=== PATIENT | male | born 1955 | race Caucasian/White ===

== ENCOUNTER 2017-08-13 14:32 | Emergency (ER) | payer BC ==
[2017-08-13] MEDS ORDERED: NS 0.9% 1000 ML* 1,000 ML IV ONE (14:47)
[2017-08-13] MEDS ORDERED: Ketorolac INJ* 60 MG/2 ML VIAL ONE (15:00)
[2017-08-13] MEDS ORDERED: Ketorolac INJ* 60 MG/2 ML VIAL IM ONE (15:01)
[2017-08-13] MEDS: Ketorolac INJ* 30 MG/ML 1 ML VIAL IV ONE ×2 (15:01→16:02)
[2017-08-13 15:18] LABS: Hematocrit 39 % (42-52); Hemoglobin 13.6 g/dl (14.0-18.0); Mean Corpuscular HGB Conc 35 g/dl (31-36); Mean Corpuscular Hemoglobin 31 pg (27-31); Mean Corpuscular Volume 88 fL (80-94); Mean Platelet Volume 11 um3 (7.4-10.4); Platelet Count 164 10^3/ul (150-450); Red Blood Count 4.47 10^6/ul (4.0-5.4); Red Cell Distribution Width 14 % (10.5-15); White Blood Count 9.7 10^3/ul (3.5-10.8)
--- NOTE | 2017-08-13 15:27 | RAD ---
INDICATION: LEFT side flank pain. Hematuria. History of renal calculi. COMPARISON: No relevant prior exams available on the [facility] [place] [place] PACS for comparison. TECHNIQUE: Multidetector CT images were obtained from the lung bases to the ischial tuberosities. Evaluation of the viscera is limited without IV contrast. Multiplanar reformation. REPORT: Unremarkable visualized inferior thorax. Normal size liver is remarkable for a 0.9 cm water density cyst of the dome of the LEFT medial hepatic segment. Partially decompressed gallbladder without gross CT abnormality. Negative for biliary dilatation. Unremarkable unenhanced liver and spleen. The stomach is partially distended with food stuff. No CT abnormality of the upper GI, small bowel, infra cecal appendix, or colon. Negative for ascites or free air. Small fat-containing direct appearing RIGHT and indirect appearing LEFT inguinal hernias without inflammatory change. Normal adrenal glands. Negative for RIGHT urolithiasis or hydronephrosis. 1.2 cm exophytic lesion isodense with renal cortex of the superior pole of the RIGHT kidney. Moderate LEFT hydronephrosis with associated perinephric and periureteral stranding is traced to a 0.4 cm maximum dimension ureterovesicular junction stone. 2 mm calyceal stone upper pole LEFT kidney. The urinary bladder is partially decompressed. Symmetric seminal vesicles. Negative for lymphadenopathy. Normal diameter abdominal aorta and iliac arteries with mild calcific plaque. Physiologic distention of the IVC. Negative for suspicious osseous lesions. Small bone islands noted at the proximal femurs. IMPRESSION: 1. Moderate LEFT hydronephrosis with associated perinephric and periureteral stranding is traced to a 0.4 cm maximum dimension ureterovesicular junction stone. 2. In absence of prior exams to document stability with none available on the [facility] [place] [place] PACS nonemergent follow-up ultrasound of the RIGHT kidney suggested to differentiate between a small hyperdense cyst and solid lesion at the upper pole cortex.
[2017-08-13 15:34] LABS: EGFR Non-African American 39.8 (>60)
[2017-08-13 15:47] LABS: ABS Basophils 0.1 10^3/ul (0-0.2); ABS Eosinophils 0.1 10^3/ul (0-0.6); ABS Lymphocytes 1.3 10^3/ul (1.0-4.8); ABS Monocytes 0.6 10^3/ul (0-0.8); ABS Neutrophils 7.7 10^3/ul (1.5-7.7); ABS Nucleated RBC 0 10^3/ul; Eosinophil % 0.9 % (0-6); Lymphocyte % 13.5 % (25-47); Nucleated Red Blood Cells % 0.1
[2017-08-13 16:07] LABS: Urine Appearance Cloudy; Urine Blood 2+ (Negative); Urine Color Yellow; Urine Ketones Negative (Negative); Urine Protein Negative (Negative); Urine Specific Gravity 1.015 (1.010-1.030); Urine Urobilinogen Negative (Negative)
[2017-08-13 17:20] VITALS: BP 139/73
--- NOTE | 2017-08-13 21:31 | ED ---
Milly Cruz Gabriel, scribed for Vazquez Ozuna MD on 08/13/17 at 1701 . Back Pain - HPI Summary HPI Summary: This patient is a 61 year old M presenting to [facility] with a chief complaint of a kidney stone since 0500 today. The patient rates the pain 7/10 in severity. Patient reports flank pain. Pt works at [employer] and checked his own urine , found blood and came in to confirm he had a kidney stone. - History of Current Complaint Chief Complaint: EDFlankPain Stated Complaint: LEFT FLANK PAIN Time Seen by Provider: 08/13/17 15:38 Hx Obtained From: Patient Onset/Duration: Lasting Hours, Still Present Onset/Duration: Still Present Severity Initially: Severe Severity Currently: Severe Pain Intensity: 10 Pain Scale Used: 0-10 Numeric Associated Signs And Symptoms: Positive: Flank Pain. Negative: Fever - Allergies/Home Medications Allergies/Adverse Reactions: Allergies Allergy/AdvReac Type Severity Reaction Status Date / Time No Known Allergies Allergy Verified 01/04/15 07:32 PMH/Surg Hx/FS Hx/Imm Hx Endocrine/Hematology History: Denies: Hx Diabetes, Hx Thyroid Disease Cardiovascular History: Reports: Hx Hypertension Respiratory History: Denies: Hx Asthma, Hx Chronic Obstructive Pulmonary Disease (COPD) GI History: Denies: Hx Ulcer Infectious Disease History: No Infectious Disease History: Denies: Hx Clostridium Difficile, Hx Hepatitis, Hx Human Immunodeficiency Virus (HIV), Hx of Known/Suspected MRSA, Hx Shingles, Hx Tuberculosis, Hx Known/ Suspected VRE, Hx Known/Suspected VRSA, History Other Infectious Disease, Traveled Outside the [place] in Last 30 Days - Family History Known Family History: Positive: Hypertension Negative: Respiratory Disease, Seizure Disorder - Social History Occupation: Employed Full-time Lives: With Family Alcohol Use: None Substance Use Type: Reports: None Smoking Status (MU): Never Smoked Tobacco Review of Systems Negative: Fever Positive: flank pain All Other Systems Reviewed And Are Negative: Yes Physical Exam - Summary Physical Exam Summary: Appearance: The patient is well-nourished in no acute distress and in no acute pain. Skin: The skin is warm and dry and skin color reflects adequate perfusion. HEENT: ~The head is normocephalic and atraumatic. The pupils are equal and reactive. The conjunctivae are clear and without drainage. ~Nares are patent and without drainage. ~Mouth reveals moist mucous membranes and the throat is without erythema and exudate. ~The external ears are intact. The ear canals are patent and without drainage. The tympanic membranes are intact. Neck: the neck is supple with full range of motion and non-tender. There are no carotid bruits. ~There is no neck vein distension. Respiratory: Chest is non-tender. ~Lungs are clear to auscultation and breath sounds are symmetrical and equal. Cardiovascular: Heart is regular rate and rhythm. ~There is no murmur or rub auscultated. ~~There is no peripheral edema and pulses are symmetrical and equal. Abdomen: The abdomen is soft and non-tender. ~There are normal bowel sounds heard in all four quadrants and there is no organomegaly palpated. Musculoskeletal: There is no back tenderness noted. ~Extremities are non-tender with full range of motion. ~There is good capillary refill. ~There is no peripheral edema or calf tenderness elicited. Neurological: Patient is alert and oriented to person, place and time. ~The patient has symmetrical motor strength in all four extremities. ~Cranial nerves are grossly intact. Deep tendon reflexes are symmetrical and equal in all four extremities. Psychiatric: The patient has an appropriate affect and does not exhibit any anxiety or depression. Triage Information Reviewed: Yes Vital Signs On Initial Exam: Initial Vitals Temp Pulse Resp BP Pulse Ox 98.4 F 57 16 159/92 99 08/13/17 14:34 08/13/17 14:34 08/13/17 14:34 08/13/17 14:34 08/13/17 14:34 Vital Signs Reviewed: Yes Diagnostics - Vital Signs Vital Signs Temp Pulse Resp BP Pulse Ox 08/13/17 14:34 98.4 F 57 16 159/92 99 - Laboratory Lab Results: Lab Results 08/13/17 08/13/17 08/13/17 Range/Units 14:45 15:02 15:02 WBC 9.7 (3.5-10.8) 10^3/ul RBC 4.47 (4.0-5.4) 10^6/ul Hgb 13.6 L (14.0-18.0) g/dl Hct 39 L (42-52) % MCV 88 (80-94) fL MCH 31 (27-31) pg MCHC 35 (31-36) g/dl RDW 14 (10.5-15) % Plt Count 164 (150-450) 10^3/ul MPV 11 H (7.4-10.4) um3 Neut % (Auto) 78.7 (38-83) % Lymph % (Auto) 13.5 L (25-47) % Colbert % (Auto) 6.4 (0-7) % Eos % (Auto) 0.9 (0-6) % Baso % (Auto) 0.5 (0-2) % Absolute Neuts (auto) 7.7 (1.5-7.7) 10^3/ul Absolute Lymphs (auto) 1.3 (1.0-4.8) 10^3/ul Absolute Monos (auto) 0.6 (0-0.8) 10^3/ul Absolute Eos (auto) 0.1 (0-0.6) 10^3/ul Absolute Basos (auto) 0.1 (0-0.2) 10^3/ul Absolute Nucleated RBC 0 10^3/ul Nucleated RBC % 0.1 Sodium 137 (133-145) mmol/L Potassium 4.2 (3.5-5.0) mmol/L Chloride 102 (101-111) mmol/L Carbon Dioxide 29 (22-32) mmol/L Anion Gap 6 (2-11) mmol/L BUN 26 H (6-24) mg/dL Creatinine 1.74 H (0.67-1.17) mg/dL Est GFR ( Amer) 51.2 (>60) Est GFR (Non-Af Amer) 39.8 (>60) BUN/Creatinine Ratio 14.9 (8-20) Glucose 110 H (70-100) mg/dL Lactic Acid (0.5-2.0) mmol/L Calcium 10.5 H (8.6-10.3) mg/dL Total Bilirubin 1.30 H (0.2-1.0) mg/dL AST 25 (13-39) U/L ALT 20 (7-52) U/L Alkaline Phosphatase 39 (34-104) U/L C-Reactive Protein 10.68 H (< 5.00) mg/L Total Protein 7.0 (6.4-8.9) g/dL Albumin 4.5 (3.2-5.2) g/dL Globulin 2.5 (2-4) g/dL Albumin/Globulin Ratio 1.8 (1-3) Lipase 28 (11.0-82.0) U/L Urine Color Yellow Urine Appearance Cloudy Urine pH 7.0 (5-9) Ur Specific [place] 1.015 (1.010-1.030) Urine Protein Negative (Negative) Urine Ketones Negative (Negative) Urine Blood 2+ H (Negative) Urine Nitrate Negative (Negative) Urine Bilirubin Negative (Negative) Urine Urobilinogen Negative (Negative) Ur Leukocyte Esterase Negative (Negative) Urine WBC (Auto) Absent (Absent) Urine RBC (Auto) 3+(>10/hpf) H (Absent) Urine Bacteria Absent (Absent) Urine Glucose Negative (Negative) 08/13/17 Range/Units 15:02 WBC (3.5-10.8) 10^3/ul RBC (4.0-5.4) 10^6/ul Hgb (14.0-18.0) g/dl Hct (42-52) % MCV (80-94) fL MCH (27-31) pg MCHC (31-36) g/dl RDW (10.5-15) % Plt Count (150-450) 10^3/ul MPV (7.4-10.4) um3 Neut % (Auto) (38-83) % Lymph % (Auto) (25-47) % Colbert % (Auto) (0-7) % Eos % (Auto) (0-6) % Baso % (Auto) (0-2) % Absolute Neuts (auto) (1.5-7.7) 10^3/ul Absolute Lymphs (auto) (1.0-4.8) 10^3/ul Absolute Monos (auto) (0-0.8) 10^3/ul Absolute Eos (auto) (0-0.6) 10^3/ul Absolute Basos (auto) (0-0.2) 10^3/ul Absolute Nucleated RBC 10^3/ul Nucleated RBC % Sodium (133-145) mmol/L Potassium (3.5-5.0) mmol/L Chloride (101-111) mmol/L Carbon Dioxide (22-32) mmol/L Anion Gap (2-11) mmol/L BUN (6-24) mg/dL Creatinine (0.67-1.17) mg/dL Est GFR ( Amer) (>60) Est GFR (Non-Af Amer) (>60) BUN/Creatinine Ratio (8-20) Glucose (70-100) mg/dL Lactic Acid 1.6 (0.5-2.0) mmol/L Calcium (8.6-10.3) mg/dL Total Bilirubin (0.2-1.0) mg/dL AST (13-39) U/L ALT (7-52) U/L Alkaline Phosphatase (34-104) U/L C-Reactive Protein (< 5.00) mg/L Total Protein (6.4-8.9) g/dL Albumin (3.2-5.2) g/dL Globulin (2-4) g/dL Albumin/Globulin Ratio (1-3) Lipase (11.0-82.0) U/L Urine Color Urine Appearance Urine pH (5-9) Ur Specific [place] (1.010-1.030) Urine Protein (Negative) Urine Ketones (Negative) Urine Blood (Negative) Urine Nitrate (Negative) Urine Bilirubin (Negative) Urine Urobilinogen (Negative) Ur Leukocyte Esterase (Negative) Urine WBC (Auto) (Absent) Urine RBC (Auto) (Absent) Urine Bacteria (Absent) Urine Glucose (Negative) Result Diagrams: 08/13/17 15:02 08/13/17 15:02 Lab Statement: Any lab studies that have been ordered have been reviewed, and results considered in the medical decision making process. Re-Evaluation - Re-Evaluation First Eval Re-Evaluation Time: 17:30 Change: Improved Comment: Pt reports 4/10 pain after IV toradol. 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 He had had left flank pain since 399 and found blood in his urine. He was found on CT to have a 4mm left UVJ stone with mild-mod hydro. U/A showed no sign of infection. - Diagnoses Provider Diagnoses: Kidney stones Discharge - Discharge Plan Condition: Stable Disposition: HOME Prescriptions: HYDROcodone/ACETAMIN 5-325 MG* [[place] 5-325 TAB*] 1 tab PO Q6H PRN #20 tab MDD 4 PRN Reason: Pain Tamsulosin CAP* [Flomax CAP*] 0.4 mg PO DAILY #7 cap Patient Education Materials: Kidney Stones (ED) Referrals: Gary Villalba MD [Primary Care Provider] - Minh Patel MD [Medical Doctor] - 2 Days Additional Instructions: Use ibuprofen as needed for pain. RETURN TO EMERGENCY DEPARTMENT FOR ANY NEW OR WORSENING SYMPTOMS The documentation as recorded by the Milly gordon Gabriel accurately reflects the service I personally performed and the decisions made by me, Vazquez Ozuna MD.
== END 2017-08-13 17:20 | disposition home or self-care (01) ==
LOC: ED 14:32
DX: N20.0 Calculus of kidney (principal); R10.84 Generalized abdominal pain
CPT/HCPCS: 36415; 74176; 80053; 81003; 81015; 83605; 83690; 85025; 86140; 96372; 96374; 99282; J1885

== ENCOUNTER 2018-10-07 05:42 | Day surgery (SDC) | payer BC, MEDICARE ==
--- NOTE | 2018-10-03 20:32 | HP ---
CC: Dr. 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 The patient's history started about 4 months ago when he started having episodes of total gross painless hematuria. There was no associated flank or abdominal pain and no voiding symptoms. He was evaluated in the office and had a flexible cystoscopy, which showed no bladder lesions. CT urogram showed a 5- mm calculus at the left ureteropelvic junction associated with minimal degree of fullness of the calyces. Because the patient was asymptomatic, he was managed conservatively, expecting that the stone will pass spontaneously. He continued to have microscopic hematuria and he remained asymptomatic. He had a recent KUB, which showed a 4 x 7 mm faintly radiopaque calculus at the level of the left ureteropelvic junction consistent with stone seen on the CT scan. Because of the above history, the fact that the stone has been in the same location for at least the last 4 months, the patient is admitted for the above procedures. PAST MEDICAL HISTORY AND SYSTEM REVIEW: He is prediabetic, maintained on metformin 750 mg daily. He has elevated lipids, corrected on Lipitor 80 mg daily. He has hypertension well controlled on Toprol 200 mg daily. He takes vitamin D supplement. ALLERGIES: He denies any allergies to medications. FAMILY HISTORY: Negative for prostate carcinoma. SOCIAL HISTORY: He is a nonsmoker. He denies any recreational drug use. PHYSICAL EXAMINATION GENERAL: He is pleasant, healthy, and fit looking white male. VITAL SIGNS: Blood pressure 120/70, pulse of 50. LUNGS: Clear. HEART: Regular and rhythmic. No murmurs. ABDOMEN: Soft. No masses, no tenderness, and no CVA tenderness. EXTERNAL GENITALIA: Normal. RECTAL: Shows a nonenlarged and nonsuspicious prostate. IMPRESSION: Persistent microscopic hematuria with a 7 x 4 mm faintly radiopaque calculus at the left ureteropelvic junction associated with mild left hydronephrosis. PLAN: Plan is for shockwave lithotripsy of the left renal calculus. Will decide depending upon the adequacy of the fragmentation of the stone whether to perform a cystoscopy and placement of left ureteral stent. I discussed above plans in detail with the patient, some of the potential complications including hematuria, renal hematoma, postoperative renal colic. All his questions were answered. [id number]/[facility] #: [id number] [place]
[~2018-10-07 05:42] MED LIST: Buffered Lidocaine 1% SYRIN* 1 ML/SYRINGE INTRADERM ONE
[2018-10-07] MEDS ORDERED: Lactated Ringers 1000 ML Bag* 1,000 ML IV SCH (06:00)
[2018-10-07] MEDS ORDERED: Famotidine IV* 10 MG/ML 2 ML (20 mg) IV ONE (06:00)
[2018-10-07] MEDS ORDERED: Famotidine IV* 10 MG/ML 2 ML (20 mg) ONE (06:12)
[2018-10-07] MEDS ORDERED: cefTRIAXone(*) 2 GM ADDV.VIAL IVPB ONE (06:12)
[2018-10-07] MEDS ORDERED: Lidocaine 2% PF * 5 ML VIAL ONE (07:09)
[2018-10-07] MEDS ORDERED: Ondansetron INJ* 2 MG/ML VIAL ONE (07:09)
[2018-10-07] MEDS ORDERED: fentaNYL* 50 MCG/ML 2 ML VIAL (100 MCG VIAL) ONE (07:09)
[2018-10-07] MEDS ORDERED: Midazolam* 1 MG/ML 5 ML VIAL (5 MG) ONE (07:09)
[2018-10-07] MEDS ORDERED: Propofol* 10 MG/ML 20 ML BTL ONE (07:09)
[2018-10-07] MEDS ORDERED: Dexamethasone IV* 4 MG/ML 1 ML (4 MG) ONE (07:09)
[2018-10-07] MEDS ORDERED: Iohexol 180 (CONTRAST) 10 ML SDV IV ONE (07:26)
[2018-10-07] MEDS ORDERED: EPHEDrine (Pressors)* 50 MG/ML VIAL ONE (07:59)
[2018-10-07] MEDS ORDERED: fentaNYL* 50 MCG/ML 2 ML VIAL (100 MCG VIAL) IV PRN (08:12)
[2018-10-07] MEDS ORDERED: oxyCODONE/Acetamin 5/325 MG* TAB PO PRN (08:12)
[2018-10-07] MEDS ORDERED: Ondansetron INJ* 2 MG/ML VIAL IV PRN (08:12)
[2018-10-07] MEDS ORDERED: Naloxone* 0.4 MG/ML 1 ML VIAL IV PRN (08:12)
[2018-10-07] MEDS ORDERED: oxyCODONE/Acetamin 5/325 MG* TAB ONE (09:38)
[2018-10-07 12:30] VITALS: BP 131/78
--- NOTE | 2018-10-07 12:48 | OP ---
CC: Dr. Gary Villalba * DATE OF OPERATION: 10/07/18 - [facility] DATE OF : 51 SURGEON: Dr. Jennings. ANESTHESIOLOGIST: Dr. Jhonatan Joseph. ANESTHESIA: General. PRE-OP DIAGNOSIS: Left renal calculus (7 mm). POST-OP DIAGNOSIS: Left renal calculus (7 mm). OPERATIVE PROCEDURES: 1. Shock wave lithotripsy of left renal calculus. 2. Cystoscopy, left retrograde pyelography, insertion of left ureteral stent (6 - Bhutanese). 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 Cystoscopy was negative. CT urogram and KUB showed 7 x 3 mm calculus at the level of the left ureteropelvic junction. No other abnormalities were noted to account for the hematuria. The patient has been asymptomatic from his calculus. Because of the duration of the symptoms and the fact that the stone is still in the same position after 4 months, the above procedure was advised and accepted. PATHOLOGY: preoperative KUB, and fluoroscopy showed a faint calcification in the area of the renal pelvis. No other abnormal calcifications were noted in the kidneys. There was a medial calcification, which by CT scan, was calcification in the aorta. Cystoscopy showed normal urethra and minimal prostate enlargement. Bladder mucosa looked normal and no suspicious bladder lesions were seen. DESCRIPTION OF PROCEDURE: After successful general anesthesia, the patient was placed in the supine position on the shock wave lithotripsy table. The calcification in the left kidney was identified. The vascular calcification was also identified. The left renal calculus was then visualized in both the PA and the oblique x- ray views, and the position of the patient and of the generator were adjusted to have that stone in the focus of the shock waves. A total of 1,000 shocks were then delivered at a rate of 60 shocks per minute. A 2- minute break was taken after the initial 300 shocks. The proper positioning and of the generator and the fragmentation of the stone were monitored periodically. At the completion of the treatment, the calculus could not be seen anymore indicating successful fragmentation. The patient was then placed in the lithotomy position and prepped and draped for a cystoscopy. Cystoscopy was performed. Bladder was inspected and above findings were noted. Left retrograde pyelography was then performed. No abnormalities were noted in the ureter or the collecting system. A size 6-Bhutanese stent was then placed with the proximal end coiling in the renal pelvis and the distal end coiling inside the bladder. There was good drainage of contrast from the kidney and no extravasation. The patient tolerated the procedure well and left the operating room in good condition. The plan is to keep the stent in place for 1 week. It will be removed in the office under local anesthesia. [id number]/[facility] #: [id number] [place]
== END 2018-10-07 11:00 | disposition home or self-care (01) ==
LOC: OR 05:42
PROVIDERS: ATTEND Urology
DX: N20.0 Calculus of kidney (principal); R73.03 Prediabetes; E78.5 Hyperlipidemia, unspecified; I10 Essential (primary) hypertension; R31.29 Other microscopic hematuria
CPT/HCPCS: 74018; A9270-GY; C1876; J0696; J1100; J2250; J2405; J2704; J3010

== ENCOUNTER 2024-04-24 05:48 | Observation (INO) ==
[~2024-04-24 05:48] MED LIST changes: -Buffered Lidocaine 1% SYRIN* 1 ML/SYRINGE INTRADERM ONE; +ROPIVACAINE 5 MG/ML 30 ML BTL (0.5%) ONE
[2024-04-24] MEDS ORDERED: Famotidine IV 10 MG/ML 2 ml VIAL (20 mg) ONE (06:09)
[2024-04-24] MEDS ORDERED: Dexamethasone IV 4 MG/ML VIAL 1 ml VIAL ONE (06:09)
[2024-04-24] MEDS ORDERED: Tranexamic Acid 1 GM/100ML BAG 2,000 MG/200 ML BAG IV ONE (06:09)
[2024-04-24] MEDS ORDERED: ceFAZolin 2 GM PREMIX 2 GM/50 ML BAG ONE (06:10)
[2024-04-24 06:25] LABS: Rapid COVID-19 Molecular Undetected (Undetected)
[2024-04-24] MEDS: Buffered Lidocaine 1% SYRIN 1 ml INTRADERM ONE (06:40)
[2024-04-24] MEDS: Dexamethasone IV 4 MG/ML VIAL 1 ml VIAL IV SLOW PU ONE (06:40)
[2024-04-24] MEDS: Famotidine IV 10 MG/ML 2 ml VIAL (20 mg) IV ONE (06:40)
[2024-04-24] MEDS: Lactated Ringers 1000 ml BAG 1,000 ML IV SCH ×2 (06:40→12:14)
[2024-04-24 06:54] LABS: INR 1.18 (0.85-1.14)
[2024-04-24] MEDS ORDERED: fentaNYL 250 mcg/5 ml 50 MCG/ML 5 ml VIAL (250 MCG) ONE (07:08)
[2024-04-24] MEDS ORDERED: Lidocaine 2% PF 5 ML VIAL ONE (07:08)
[2024-04-24] MEDS ORDERED: Propofol 10 MG/ML 20 ML BTL ONE (07:08)
[2024-04-24] MEDS ORDERED: Midazolam 2 mg/2 ml VIAL 1 mg/ml 2 ml VIAL (2 mg) ONE (07:08)
[2024-04-24] MEDS ORDERED: ROPIVACAINE 5 MG/ML 30 ML BTL (0.5%) ONE (07:09)
[2024-04-24] MEDS ORDERED: Glycopyrrolate IV 0.2 MG/ML 1 ML VIAL ONE (07:38)
[2024-04-24] MEDS ORDERED: Naloxone 0.4 mg VIAL 0.4 mg/ml 1 ml VIAL IV PRN (08:05)
[2024-04-24] MEDS ORDERED: Morphine 4 MG/ML VIAL (1 ml) IV PRN (08:05)
[2024-04-24] MEDS ORDERED: Ondansetron 4 mg VIAL 2 MG/ML 2 ml VIAL ONE (09:03)
[2024-04-24] MEDS ORDERED: Ondansetron 4 mg VIAL 2 MG/ML 2 ml VIAL IV PRN (09:54)
[2024-04-24] MEDS ORDERED: Lactulose 30 ml UDC PO PRN (09:54)
[2024-04-24] MEDS ORDERED: Magnesium Hydroxide LIQ 30 ML UDC PO PRN (09:54)
[2024-04-24] MEDS ORDERED: Morphine 2 MG/ML SYRINGE IV PRN (09:54)
[2024-04-24] MEDS ORDERED: Calcium Carb (TUMS) 500 mg CHEW TAB PO PRN (09:54)
[2024-04-24] MEDS ORDERED: Ondansetron ODT 4 mg TAB 4 MG TAB PO PRN (09:54)
[2024-04-24] MEDS ORDERED: fentaNYL 100 mcg/2 ml 50 MCG/ML VIAL ONE ×2 (10:14→10:36)
[2024-04-24] MEDS: fentaNYL 100 mcg/2 ml 50 MCG/ML VIAL IV PRN (10:16)
[2024-04-24] MEDS ORDERED: Dextrose 50% Syringe 50 ml 25 GM/50 ML SYRINGE IV PUSH PRN (15:06)
[2024-04-24] MEDS: ceFAZolin 2 GM PREMIX 2 GM/50 ML BAG IV SCH (15:35)
[2024-04-24 17:45] VITALS: BP 154/83
[2024-04-24] MEDS ORDERED: Magnesium Hydroxide LIQ 30 ML UDC PO SCH (21:00)
[2024-04-25] MEDS ORDERED: CMC:Alfuzosin ER 10 mg TAB.ER (NF) 10 MG TAB.ER PO SCH (09:00)
[2024-04-25] MEDS ORDERED: Vitamin THERAPEUTIC TAB PO SCH (09:00)
== END 2024-04-24 18:37 | disposition home or self-care (01) ==
LOC: SSU 05:48 → OR 05:48
PROVIDERS: ADMIT Orthopaedic Surgery Adult Reconstructive Orthopaedic Surgery; ATTEND Orthopaedic Surgery Adult Reconstructive Orthopaedic Surgery